=== PATIENT | male | born 1995 | race African-American/Black ===

== ENCOUNTER 2018-08-18 00:32 | Emergency (ER) | payer SELFPAY ==
[~2018-08-18] VITALS: Ht 180.3 cm; Wt 59.0 kg
[2018-08-18] MEDS ORDERED: IV NORMAL SALINE 1000ML BAG 1,000 ML IV SCH (02:00)
[2018-08-18] MEDS ORDERED: IOHEXOL 300 MG/ML 100ML VIAL. IV ONE (02:00)
[2018-08-18] MEDS ORDERED: CONTRAST GIVEN. MC PRN (02:00)
[2018-08-18] MEDS ORDERED: HYOSCYAMINE 0.125 MG TAB.RAPDIS PO ONE (02:00)
[2018-08-18] MEDS ORDERED: PROCHLORPERAZINE 10 MG/2 ML VIAL. IV ONE (02:00)
[2018-08-18] MEDS ORDERED: KETOROLAC 30 MG/ML VIAL. IV ONE (02:00)
[2018-08-18 02:16] LABS: BASO % 1 % (0-3); EOS % 0 % (0-3); HEMATOCRIT 43.3 % (39.0-53.0); HEMOGLOBIN 14.7 g/dL (13.0-17.5); LYMPH # 1.2 x10^3/uL (1.0-4.8); LYMPH % 21 % (24-48); MEAN CORPUSCULAR HEMOGLOBIN 33 pg (25-35); MEAN CORPUSCULAR HGB CONC 34 g/dL (31-37); MEAN CORPUSCULAR VOLUME 97 fL (79-100); MONO # 0.6 x10^3/uL (0.0-1.1); MONO % 10 % (0-9); NEUT # 3.9 x10^3uL (1.8-7.7); NEUT % 69 % (31-73); PLATELET COUNT 190 x10^3/uL (140-400); RED BLOOD COUNT 4.45 x10^6/uL (4.30-5.70); RED CELL DISTRIBUTION WIDTH 13.5 % (11.5-14.5); WHITE BLOOD COUNT 5.7 x10^3/uL (4.0-11.0)
--- NOTE | 2018-08-18 02:18 | PHYS DOC ---
Past Medical History Past Medical History: No Pertinent History Past Surgical History: No Surgical History Alcohol Use: Occasionally Drug Use: Marijuana Adult General Chief Complaint Chief Complaint: ABDOMINAL PAIN HPI HPI Patient is a 23 year old male who presents with right-sided abdominal pain. This started approximately 2000 on 08/17/2018. Patient had last eaten chicken sandwich and cambodian fries at 1800. Patient also smoked some marijuana earlier in the day. Patient had one episode of nausea and vomiting. Patient reports moving around makes the discomfort worse, holding still seems to make it better patient is taken no medication at home. Patient denies any groin or testicular pain, no dysuria. Patient denies having previous surgical history..[] Review of Systems Review of Systems Constitutional: Denies fever or chills [] Eyes: Denies change in visual acuity, redness, or eye pain [] HENT: Denies nasal congestion or sore throat [] Respiratory: Denies cough or shortness of breath [] Cardiovascular: No chest pain or palpitations[] GI: See history of present illness[] : Denies dysuria or hematuria [] Musculoskeletal: Denies back pain or joint pain [] Integument: Denies rash or skin lesions [] Neurologic: Denies headache, focal weakness or sensory changes [] Endocrine: Denies polyuria or polydipsia [] All other systems were reviewed and found to be within normal limits, except as documented in this note. Current Medications Current Medications Current Medications Medications (Trade) Dose Ordered Sig/Js Start Time Stop Time Status Last Admin Dose Admin Hyoscyamine (Anaspaz) 0.125 mg ONCE ONCE 08/18/18 02:00 08/18/18 02:01 DC Info (CONTRAST GIVEN -- Rx MONITORING) 1 each PRN DAILY PRN 08/18/18 02:00 08/20/18 01:59 Iohexol (Omnipaque 300 Mg/ml) 75 ml 1X ONCE 08/18/18 02:00 08/18/18 02:01 DC 08/18/18 02:00 75 ML Ketorolac Tromethamine (Toradol 30mg Vial) 30 mg 1X ONCE 08/18/18 02:00 08/18/18 02:01 DC Prochlorperazine Edisylate (Compazine) 5 mg 1X ONCE 08/18/18 02:00 08/18/18 02:01 DC Sodium Chloride 1,000 ml @ 1,000 mls/hr Q1H 08/18/18 02:00 08/18/18 02:59 DC 08/18/18 02:08 1,000 MLS/HR Allergies Allergies Allergies Coded Allergies Type Severity Reaction Last Updated Verified No Known Drug Allergies 08/18/18 No Physical Exam Physical Exam Constitutional: Well developed, well nourished, mild discomfort, non-toxic appearance. [] HENT: Normocephalic, atraumatic, bilateral external ears normal, oropharynx moist, no oral exudates, nose normal. [] Eyes: PERRLA, EOMI, conjunctiva normal, no discharge. [] Neck: Normal range of motion, no tenderness, supple, no stridor. [] Cardiovascular:Heart rate regular rhythm, no murmur [] Lungs & Thorax: Bilateral breath sounds clear to auscultation [] Abdomen: Bowel sounds normal, soft, +right-sided tenderness. No specific McBurney's point tenderness no Rovsing's sign, no Chi's sign, no masses, no pulsatile masses. [] Skin: Warm, dry, no erythema, no rash. [] Back: No tenderness, no CVA tenderness. [] Extremities: No tenderness, no cyanosis, no clubbing, ROM intact, no edema. [] Neurologic: Alert and oriented X 3, normal motor function, normal sensory function, no focal deficits noted. [] Psychologic: Affect normal, judgement normal, mood normal. [] Current Patient Data Vital Signs Vital Signs Date Time Temp Pulse Resp B/P (MAP) Pulse Ox O2 Delivery O2 Flow Rate FiO2 08/18/18 01:00 98.4 60 18 157/100 (119) 98 Room Air 98.4 Lab Values Laboratory Tests Test 08/18/18 02:07 White Blood Count 5.7 x10^3/uL (4.0-11.0) Red Blood Count 4.45 x10^6/uL (4.30-5.70) Hemoglobin 14.7 g/dL (13.0-17.5) Hematocrit 43.3 % (39.0-53.0) Mean Corpuscular Volume 97 fL (79-100) Mean Corpuscular Hemoglobin 33 pg (25-35) Mean Corpuscular Hemoglobin Concent 34 g/dL (31-37) Red Cell Distribution Width 13.5 % (11.5-14.5) Platelet Count 190 x10^3/uL (140-400) Neutrophils (%) (Auto) 69 % (31-73) Lymphocytes (%) (Auto) 21 % (24-48) L Monocytes (%) (Auto) 10 % (0-9) H Eosinophils (%) (Auto) 0 % (0-3) Basophils (%) (Auto) 1 % (0-3) Neutrophils # (Auto) 3.9 x10^3uL (1.8-7.7) Lymphocytes # (Auto) 1.2 x10^3/uL (1.0-4.8) Monocytes # (Auto) 0.6 x10^3/uL (0.0-1.1) Eosinophils # (Auto) 0.0 x10^3/uL (0.0-0.7) Basophils # (Auto) 0.0 x10^3/uL (0.0-0.2) Sodium Level 143 mmol/L (136-145) Potassium Level 4.3 mmol/L (3.5-5.1) Chloride Level 104 mmol/L (98-107) Carbon Dioxide Level 30 mmol/L (21-32) Anion Gap 9 (6-14) Blood Urea Nitrogen 11 mg/dL (8-26) Creatinine 1.0 mg/dL (0.7-1.3) Estimated GFR (Cockcroft-Gault) 113.1 BUN/Creatinine Ratio 11 (6-20) Glucose Level 99 mg/dL (70-99) Calcium Level 9.3 mg/dL (8.5-10.1) Total Bilirubin 0.8 mg/dL (0.2-1.0) Aspartate Amino Transferase (AST) 16 U/L (15-37) Alanine Aminotransferase (ALT) 17 U/L (16-63) Alkaline Phosphatase 72 U/L (46-116) Total Protein 7.6 g/dL (6.4-8.2) Albumin 4.3 g/dL (3.4-5.0) Albumin/Globulin Ratio 1.3 (1.0-1.7) Lipase 118 U/L (73-393) Laboratory Tests 08/18/18 02:07 Laboratory Tests 08/18/18 02:07 EKG EKG [] Radiology/Procedures Radiology/Procedures CT scan of the abdomen and pelvis: IMPRESSION: 1. There is a 3 mm calculus in the proximal right ureter with resulting mild to moderate right hydroureteronephrosis. There is mild delayed enhancement of the right kidney. 2. 6 mm hypoattenuating lesion in the right hepatic lobe is suggestive of benign etiology such as a simple cyst or hemangioma.[] Course & Med Decision Making Course & Med Decision Making Pertinent Labs and Imaging studies reviewed. (See chart for details) ED course: Patient arrived, was placed in bed, in tolerated exam well. Patient had spontaneous resolution of his pain before pain medicine could be administered. He was transported to and from [place] with any complications. After the return of the imaging findings IV anti-inflammatories were administered prophylactically. Patient family were informed of the lab and CT findings. They voiced understanding. All questions were answered. Patient was discharged in improved condition. Medical decision making: There is no evidence of perforation or obstruction. No evidence of need for acute surgical intervention. Given the small size of the stone this should pass spontaneously. Patient will be discharged with pain medication as well as antiemetics.[] Dragon Disclaimer Dragon Disclaimer This electronic medical record was generated, in whole or in part, using a voice recognition dictation system. Departure Departure Impression: Primary Impression: Ureterolithiasis Disposition: 01 HOME, SELF-CARE Condition: GOOD Referrals: NO PCP (PCP) Patient Instructions: Diet for Kidney Stones, Kidney Stones Additional Instructions: Drink plenty of fluids. Follow-up with your regular doctor. Return to the ER if worsening pain, unable to tolerate oral intake, or any other concerns. Scripts Hydrocodone/Apap 5-325 (NORCO 5-325 TABLET) 1 Each Tablet 1-2 EACH PO PRN Q6HRS PRN for PAIN, #15 as needed for pain Prov: FANY COURTNEY DO 08/18/18 Metoclopramide Hcl (REGLAN) 10 Mg Tablet 10 MG PO QIDACHS, #30 TAB 0 Refills Prov: FANY COURTNEY DO 08/18/18 Meloxicam (MELOXICAM) 7.5 Mg Tablet 7.5 MG PO DAILY, #20 TAB Prov: FANY COURTNEY DO 08/18/18 FANY COURTNEY DO Aug 18, 2018 02:18
[2018-08-18 02:24] LABS: CALCIUM 9.3 mg/dL (8.5-10.1); GFR 113.1; POTASSIUM 4.3 mmol/L (3.5-5.1)
[2018-08-18 02:30] LABS: ALBUMIN 4.3 g/dL (3.4-5.0); ALBUMIN/GLOBULIN RATIO 1.3 (1.0-1.7); TOTAL BILIRUBIN 0.8 mg/dL (0.2-1.0); TOTAL PROTEIN 7.6 g/dL (6.4-8.2)
--- NOTE | 2018-08-18 02:52 | RAD ---
PQRS Compliance Statement: One or more of the following individualized dose reduction techniques were utilized for this examination: 1. Automated exposure control 2. Adjustment of the mA and/or kV according to patient size 3. Use of iterative reconstruction technique CT abdomen/pelvis with contrast 08/18/2018 2:27 AM INDICATION: Right-sided abdominal pain with vomiting. COMPARISON: None available TECHNIQUE: Multiple axial CT images of the abdomen and pelvis were obtained after the intravenous administration of 75 mL Omnipaque 300. Coronal and sagittal reformats are provided. FINDINGS: Lung bases are clear. Heart size is within normal limits. There is a 6 mm hypoattenuating lesion in the right hepatic lobe suggestive of benign etiology such as a simple cyst or hemangioma. Spleen is nonenlarged. Pancreas and gallbladder are normal. The abdominal aorta is normal in course and caliber. There are no pathologically enlarged lymph nodes in the abdomen and pelvis. There is no abdominal free fluid. There is no free intraperitoneal air. Small and large bowel are normal in caliber. There is no evidence for bowel obstruction. There are no pericolonic inflammatory changes. A normal, nondilated appendix is visualized without adjacent inflammatory changes. There is mild to moderate right hydronephrosis with mild urothelial wall thickening. There is a 3 mm calculus in the proximal right ureter. Mild delayed enhancement of the right kidney. Left kidney is normal in appearance without calculus. Urinary bladder is within normal limits given degree of distention. No suspicious pelvic mass. No suspicious osseous amount. IMPRESSION: 1. There is a 3 mm calculus in the proximal right ureter with resulting mild to moderate right hydroureteronephrosis. There is mild delayed enhancement of the right kidney. 2. 6 mm hypoattenuating lesion in the right hepatic lobe is suggestive of benign etiology such as a simple cyst or hemangioma. Electronically signed by: Sharla Tony MD (08/18/2018 2:48 AM) [id number]
[2018-08-18 02:57] LABS: BILIRUBIN,URINE NEGATIVE (NEG); CLARITY,URINE CLEAR; COLOR,URINE YELLOW; NITRITE,URINE NEGATIVE (NEG); PROTEIN,URINE NEGATIVE (NEG-TRACE); UROBILINOGEN,URINE 0.2 mg/dL (0.2 mg/dL)
[2018-08-18 03:09] LABS: BACTERIA,URINE 0 /HPF (0-FEW); RBC,URINE TNTC /HPF (0-2); WBC,URINE RARE /HPF (0-4)
[2018-08-18] MEDS ORDERED: METO10TA81 PO (03:11)
[2018-08-18] MEDS ORDERED: MELO7.5T29 PO (03:11)
[2018-08-18] MEDS ORDERED: HYDR-3164 PO (03:12)
[2018-08-18 03:20] VITALS: BP 150/96
== END 2018-08-18 03:22 | disposition home or self-care (01) ==
LOC: ER 00:32
DX: N13.2 Hydronephrosis with renal and ureteral calculous obstruction (principal); R11.2 Nausea with vomiting, unspecified; F12.20 Cannabis dependence, uncomplicated
CPT/HCPCS: 36415; 74177; 80053; 81001; 83690; 85025; 96361; 96374; 99284; J1885; J7030; Q9967

== ENCOUNTER 2021-01-09 15:33 | Emergency (ER) | payer SELFPAY ==
[~2021-01-09] VITALS: Ht 180.3 cm; Wt 67.0 kg
[~2021-01-09 15:33] MED LIST: HYDR-3164 PO; MELO7.5T29 PO; METO10TA81 PO
[2021-01-09] MEDS: IV NORMAL SALINE 1000ML BAG 1,000 ML IV ONE (16:59)
[2021-01-09] MEDS: ONDANSETRON PF 4 MG/2 ML VIAL. IVP ONE (16:59)
[2021-01-09] MEDS: MORPHINE SULFATE 10 MG/ML VIAL. IV ONE (17:00)
[2021-01-09] MEDS: KETOROLAC 30 MG/ML VIAL. IVP ONE (17:00)
[2021-01-09 17:05] LABS: BILIRUBIN,URINE NEGATIVE (NEG); CLARITY,URINE CLOUDY; COLOR,URINE RED; NITRITE,URINE NEGATIVE (NEG); PROTEIN,URINE 100 mg/dL (NEG-TRACE); UROBILINOGEN,URINE 0.2 mg/dL (0.2 mg/dL)
[2021-01-09 17:18] LABS: RBC,URINE TNTC /HPF (0-2)
[2021-01-09 17:25] LABS: BACTERIA,URINE FEW /HPF (0-FEW)
[2021-01-09 17:28] LABS: BASO % 1 % (0-3); EOS % 0 % (0-3); HEMATOCRIT 43.7 % (39.0-53.0); HEMOGLOBIN 14.5 g/dL (13.0-17.5); LYMPH # 1.2 x10^3/uL (1.0-4.8); LYMPH % 15 % (24-48); MEAN CORPUSCULAR HEMOGLOBIN 32 pg (25-35); MEAN CORPUSCULAR HGB CONC 33 g/dL (31-37); MEAN CORPUSCULAR VOLUME 97 fL (79-100); MONO # 0.6 x10^3/uL (0.0-1.1); MONO % 7 % (0-9); NEUT # 6.2 x10^3/uL (1.8-7.7); NEUT % 77 % (31-73); PLATELET COUNT 238 x10^3/uL (140-400); RED BLOOD COUNT 4.52 x10^6/uL (4.30-5.70); RED CELL DISTRIBUTION WIDTH 13.4 % (11.5-14.5); WHITE BLOOD COUNT 8.1 x10^3/uL (4.0-11.0)
--- NOTE | 2021-01-09 17:36 | RAD ---
Exam: CT of abdomen and pelvis without contrast INDICATION: Left-sided flank pain TECHNIQUE: Sequential axial images through the abdomen and pelvis obtained without IV contrast. Sagit yolis and coronal reformatted images were reconstructed from the axial data and reviewed. Comparisons: 07/29/2018 FINDINGS: Heart size is normal. No pericardial effusion. Visualized lung bases are clear. No pleural effusion. Evaluation of solid organs is limited secondary to noncontrast technique. Liver, spleen, pancreas, gallbladder and adrenals are unremarkable. There is moderate right-sided hydronephrosis. There is a 3 mm calculus at the distal left ureter. Enzo ateral nonobstructing renal calculi noted. Bladder is decompressed not well evaluated. Prostate is not enlarged. Large and small bowel are unremarkable. Appendix is normal. No free intra-abdominal air or fluid. No obstruction. Abdominal aorta has a normal course and caliber. No enlarged intra-abdominal lymph nodes are identified. No suspicious lesions or acute fractures. IMPRESSION: Moderate left-sided hydronephrosis with a 3 mm calculus at the distal left ureter. Bilateral nonobstr ucting renal calculi noted. Exposure: One or more of the following in the visualized dose reduction techniques were utilized for this examination: 1. Automated exposure control 2. Adjustment of the MA and/or KV according to patient size 3. Use of iterative of reconstructive technique Electronically signed by: Gerry Amaya MD (01/09/2021 5:34 PM) [facility]
--- NOTE | 2021-01-09 17:56 | ED.ADGEN ---
Past Medical History Past Medical History: No Pertinent History Past Surgical History: No Surgical History Smoking Status: Current Every Day Smoker Alcohol Use: Occasionally Drug Use: Marijuana General Adult EDM: Chief Complaint: FLANK PAIN HPI: HPI: Patient is 25-year-old male who presents to the emergency room complaining of left-sided flank pain. Patient states that this started earlier today. It does been constant since that time. He states that he is unable to get comfortable. He states that it feels like a swelling pain. He does not know if he has any urinary symptoms because he has not looked he states. He denies any kind of fever. He has not had any nausea or vomiting. He states he had something similar to this a couple years ago that was due to kidney pain. He states that it was due to him not drinking enough water but does not remember what happened. Review of Systems: Review of Systems: Complete ROS is negative unless otherwise documented in HPI Current Medications: Current Medications Medications (Trade) Dose Ordered Sig/Js Start Time Stop Time Status Last Admin Dose Admin Ketorolac Tromethamine (Toradol 30mg Vial) 30 mg 1X ONCE 01/09/21 16:45 01/09/21 16:46 DC 01/09/21 17:00 30 MG Morphine Sulfate (Morphine Sulfate) 5 mg 1X ONCE 01/09/21 16:45 01/09/21 16:46 DC 01/09/21 17:00 5 MG Ondansetron HCl (Zofran) 4 mg 1X ONCE 01/09/21 17:00 01/09/21 17:01 DC 01/09/21 16:59 4 MG Sodium Chloride 1,000 ml @ 1,000 mls/hr 1X ONCE 01/09/21 16:45 01/09/21 17:44 DC 01/09/21 16:59 1,000 MLS/HR Allergies: Allergies: Allergies Coded Allergies Type Severity Reaction Last Updated Verified No Known Drug Allergies 08/18/18 No Physical Exam: PE: General: Awake, alert, NAD. Well Nourished, well hydrated. Cooperative HEENT: Atraumatic, EOMI, PERRL, airway patent, moist oral mucosa Neck: Supple, trachea midline Respiratory: CTA bilaterally, normal effort, no wheezing/crackles CV: RRR, no murmur, cap refill <2 GI: Soft, nondistended, nontender, no masses MSK: No obvious deformities Skin: Warm, dry, intact Neuro: A&O x3, speech NL, sensory and motor grossly intact, no focal deficits Psych: Normal affect, normal mood, not suicidal or homicidal Current Patient Data: Labs: Laboratory Tests Test 01/09/21 16:00 01/09/21 16:48 White Blood Count 8.1 x10^3/uL (4.0-11.0) Red Blood Count 4.52 x10^6/uL (4.30-5.70) Hemoglobin 14.5 g/dL (13.0-17.5) Hematocrit 43.7 % (39.0-53.0) Mean Corpuscular Volume 97 fL (79-100) Mean Corpuscular Hemoglobin 32 pg (25-35) Mean Corpuscular Hemoglobin Concent 33 g/dL (31-37) Red Cell Distribution Width 13.4 % (11.5-14.5) Platelet Count 238 x10^3/uL (140-400) Neutrophils (%) (Auto) 77 % (31-73) H Lymphocytes (%) (Auto) 15 % (24-48) L Monocytes (%) (Auto) 7 % (0-9) Eosinophils (%) (Auto) 0 % (0-3) Basophils (%) (Auto) 1 % (0-3) Neutrophils # (Auto) 6.2 x10^3/uL (1.8-7.7) Lymphocytes # (Auto) 1.2 x10^3/uL (1.0-4.8) Monocytes # (Auto) 0.6 x10^3/uL (0.0-1.1) Eosinophils # (Auto) 0.0 x10^3/uL (0.0-0.7) Basophils # (Auto) 0.0 x10^3/uL (0.0-0.2) Urine Collection Type Void Urine Color Red Urine Clarity Cloudy Urine pH 7.0 (<5.0-8.0) Urine Specific [place] 1.020 (1.000-1.030) Urine Protein 100 mg/dL (NEG-TRACE) Urine Glucose (UA) Negative mg/dL (NEG) Urine Ketones (Stick) Trace mg/dL (NEG) Urine Blood Large (NEG) Urine Nitrite Negative (NEG) Urine Bilirubin Negative (NEG) Urine Urobilinogen Dipstick 0.2 mg/dL (0.2 mg/dL) Urine Leukocyte Esterase Small (NEG) Urine RBC Tntc /HPF (0-2) Urine WBC 1-4 /HPF (0-4) Urine Squamous Epithelial Cells Occ /LPF Urine Bacteria Few /HPF (0-FEW) Urine Mucus Mod /LPF Laboratory Tests 01/09/21 16:00 Vital Signs: Vital Signs Date Time Temp Pulse Resp B/P (MAP) Pulse Ox O2 Delivery O2 Flow Rate FiO2 01/09/21 17:00 17 96 Room Air 01/09/21 15:56 98.4 56 132/64 (86) 98.4 EKG: EKG: [] Heart Score: C/O Chest Pain: N/A Risk Factors: Risk Factors: DM, Current or recent (<one month) smoker, HTN, HLP, family history of CAD, obesity. Risk Scores: Score 0 - 3: 2.5% MACE over next 6 weeks - Discharge Home Score 4 - 6: 20.3% MACE over next 6 weeks - Admit for Clinical Observation Score 7 - 10: 72.7% MACE over next 6 weeks - Early Invasive Strategies Radiology/Procedures: Radiology/Procedures: [] Course & Med Decision Making: Course & Med Decision Making Pertinent Labs and Imaging studies reviewed. (See chart for details) Patient is a 25 year old who presents to the Emergency Room complaining of left flank pain. On exam, patient was initially sleeping but upon being awoken appears uncomfortable. Patient's presentation is concerning for a possible kidney stone. Patient was given morphine and Toradol for pain relief. CBC, BMP, UA were ordered to evaluate for kidney function and infection. CT abdomen and pelvis without contrast was ordered to evaluate for a kidney stone. CT shows small kidney stone. Patient discussed with Dr Banda who will assume care. At check out, BMP was pending. Dragon Disclaimer: George Disclaimer: This electronic medical record was generated, in whole or in part, using a voice recognition dictation system. Departure Departure Impression: Primary Impression: Kidney stone Disposition: HOME / SELF CARE / HOMELESS Condition: STABLE Referrals: NO PCP (PCP) Patient Instructions: Kidney Stones Scripts Tamsulosin Hcl (FLOMAX) 0.4 Mg Cap.er.24h 1 CAP PO DAILY, #14 CAP 0 Refills Prov: FILI DOBSON MD 01/09/21 Oxycodone/Apap 5-325 (PERCOCET 5-325 MG TABLET ) 1 Each Tablet 1 TAB PO PRN Q6HRS PRN for PAIN, #12 TAB 0 Refills Prov: FILI DOBSON MD 01/09/21 FILI DOBSON MD Jan 09, 2021 17:56
[2021-01-09] MEDS ORDERED: TAMS0.4C97 PO (17:58)
[2021-01-09] MEDS ORDERED: OXYC1TAB15 PO (17:58)
[2021-01-09 19:17] LABS: CALCIUM 8.9 mg/dL (8.5-10.1); CREATININE 1.1 mg/dL (0.7-1.3); GFR 99.5; POTASSIUM 3.2 mmol/L (3.5-5.1)
[2021-01-09 19:21] VITALS: BP 148/65
[2021-01-09 19:22] LABS: ALBUMIN 4.7 g/dL (3.4-5.0); ALBUMIN/GLOBULIN RATIO 1.5 (1.0-1.7); TOTAL BILIRUBIN 0.6 mg/dL (0.2-1.0); TOTAL PROTEIN 7.8 g/dL (6.4-8.2)
== END 2021-01-09 19:29 | disposition home or self-care (01) ==
LOC: ER 15:33
DX: N20.0 Calculus of kidney (principal); R10.9 Unspecified abdominal pain; F17.200 Nicotine dependence, unspecified, uncomplicated; F12.90 Cannabis use, unspecified, uncomplicated
CPT/HCPCS: 36415; 74176; 80053; 81001; 85025; 87491; 87591; 96361; 96374; 96375; 99285; J1885; J2270; J2405; J7030

== ENCOUNTER 2021-03-19 14:33 | Emergency (ER) | payer BC ==
[~2021-03-19] VITALS: Ht 180.3 cm; Wt 61.3 kg
[~2021-03-19 14:33] MED LIST changes: +OXYC1TAB15 PO; +TAMS0.4C97 PO
--- NOTE | 2021-03-19 14:44 | PHYS DOC ---
Past Medical History Past Medical History: No Pertinent History Past Surgical History: No Surgical History Smoking Status: Current Every Day Smoker Alcohol Use: Occasionally Drug Use: Marijuana General Adult EDM: Chief Complaint: FLANK PAIN HPI: HPI: Patient is a 25 year old who presented to ER for evaluation of right flank pain with blood in his urine started this morning. Patient has a history of kidney stones in the past. Patient denies any cough or fever, no chest pain, no trouble breathing. Patient described the pain is very sharp and stabbing in nature. Last time he had a kidney stone attack was 3 months ago. Review of Systems: Review of Systems: Constitutional: Denies fever or chills. [] Eyes: Denies change in visual acuity. [] HENT: Denies nasal congestion or sore throat. [] Respiratory: Denies cough or shortness of breath. [] Cardiovascular: Denies chest pain or edema. [] GI: Positive for right flank pain,NO nausea, vomiting, bloody stools or diarrhea. [] : Denies dysuria, positive for blood in his urine. Musculoskeletal: Denies back pain or joint pain. [] Integument: Denies rash. [] Neurologic: Denies headache, focal weakness or sensory changes. [] Endocrine: Denies polyuria or polydipsia. [] Lymphatic: Denies swollen glands. [] Psychiatric: Denies depression or anxiety. [] Heart Score: C/O Chest Pain: N/A Risk Factors: Risk Factors: DM, Current or recent (<one month) smoker, HTN, HLP, family history of CAD, obesity. Risk Scores: Score 0 - 3: 2.5% MACE over next 6 weeks - Discharge Home Score 4 - 6: 20.3% MACE over next 6 weeks - Admit for Clinical Observation Score 7 - 10: 72.7% MACE over next 6 weeks - Early Invasive Strategies Allergies: Allergies: Allergies Coded Allergies Type Severity Reaction Last Updated Verified No Known Drug Allergies 08/18/18 No Physical Exam: PE: Constitutional: Well developed, well nourished, no acute distress, non-toxic appearance. [] HENT: Normocephalic, atraumatic, bilateral external ears normal, oropharynx moist, no oral exudates, nose normal. [] Eyes: PERRLA, EOMI, conjunctiva normal, no discharge. [] Neck: Normal range of motion, no tenderness, supple, no stridor. [] Cardiovascular:Heart rate regular rhythm, no murmur [] Lungs & Thorax: Bilateral breath sounds clear to auscultation [] Abdomen: Bowel sounds normal, soft, right side tenderness to palpation, no masses, no pulsatile masses. [] Skin: Warm, dry, no erythema, no rash. [] Back: No tenderness, Right CVA tenderness. [] Extremities: No tenderness, no cyanosis, no clubbing, ROM intact, no edema. [] Neurologic: Alert and oriented X 3, normal motor function, normal sensory functi on, no focal deficits noted. [] Psychologic: Affect normal, judgement normal, mood normal. [] Current Patient Data: Labs: Laboratory Tests Test 03/19/21 14:50 03/19/21 15:00 03/19/21 16:20 White Blood Count 6.1 x10^3/uL Red Blood Count 4.50 x10^6/uL Hemoglobin 14.2 g/dL Hematocrit 43.0 % Mean Corpuscular Volume 96 fL Mean Corpuscular Hemoglobin 32 pg Mean Corpuscular Hemoglobin Concent 33 g/dL Red Cell Distribution Width 13.5 % Platelet Count 269 x10^3/uL Neutrophils (%) (Auto) 41 % Lymphocytes (%) (Auto) 45 % Monocytes (%) (Auto) 13 % Eosinophils (%) (Auto) 0 % Basophils (%) (Auto) 1 % Neutrophils # (Auto) 2.5 x10^3/uL Lymphocytes # (Auto) 2.7 x10^3/uL Monocytes # (Auto) 0.8 x10^3/uL Eosinophils # (Auto) 0.0 x10^3/uL Basophils # (Auto) 0.0 x10^3/uL Sodium Level 142 mmol/L Potassium Level 3.3 mmol/L Chloride Level 103 mmol/L Carbon Dioxide Level 25 mmol/L Anion Gap 14 Blood Urea Nitrogen 12 mg/dL Creatinine 1.2 mg/dL Estimated GFR (Cockcroft-Gault) 90.0 BUN/Creatinine Ratio 10 Glucose Level 106 mg/dL Calcium Level 9.3 mg/dL Total Bilirubin 1.0 mg/dL Aspartate Amino Transf (AST/SGOT) 24 U/L Alanine Aminotransferase (ALT/SGPT) 19 U/L Alkaline Phosphatase 81 U/L Total Protein 7.9 g/dL Albumin 4.8 g/dL Albumin/Globulin Ratio 1.5 Lipase 51 U/L Urine Collection Type Unknown Urine Color Red Urine Clarity Turbid Urine pH 7.5 Urine Specific [place] 1.020 Urine Protein 30 mg/dL Urine Glucose (UA) Negative mg/dL Urine Ketones (Stick) Trace mg/dL Urine Blood Large Urine Nitrite Negative Urine Bilirubin Negative Urine Urobilinogen Dipstick 1.0 mg/dL Urine Leukocyte Esterase Small Urine RBC Tntc /HPF Urine WBC 1-4 /HPF Urine Squamous Epithelial Cells Occ /LPF Urine Amorphous Sediment Present /HPF Urine Bacteria Moderate /HPF Urine Mucus Mod /LPF Current Medications Medications (Trade) Dose Ordered Sig/Js Route PRN Reason Start Time Stop Time Status Last Admin Dose Admin Ketorolac Tromethamine (Toradol 30mg Vial) 30 mg 1X ONCE IVP 03/19/21 15:00 03/19/21 15:01 DC 03/19/21 15:13 Ondansetron HCl (Zofran) 4 mg 1X ONCE IVP 03/19/21 15:00 03/19/21 15:01 DC 03/19/21 15:11 Sodium Chloride 1,000 ml @ 1,000 mls/hr 1X ONCE IV 03/19/21 15:00 03/19/21 15:59 DC 03/19/21 15:12 Tamsulosin HCl (Flomax) 0.4 mg 1X ONCE PO 03/19/21 15:45 03/19/21 15:46 DC 03/19/21 15:51 Morphine Sulfate (Morphine Sulfate) 4 mg 1X ONCE IV 03/19/21 15:45 03/19/21 15:46 DC 03/19/21 15:51 Ceftriaxone Sodium (Rocephin) 1 gm 1X ONCE IVP 03/19/21 17:00 03/19/21 17:01 DC 03/19/21 17:17 Potassium Chloride (Klor-Con) 40 meq 1X ONCE PO 03/19/21 17:00 03/19/21 17:01 Cancel Potassium Chloride (Klor-Con) 40 meq 1X ONCE PO 03/19/21 17:15 03/19/21 17:16 DC 03/19/21 17:17 EKG: EKG: [] Radiology/Procedures: Radiology/Procedures: [][facility] [address] [place] [address] IMAGING REPORT Signed PATIENT: JAYDEN MATHEW MACCOUNT: [id number] : 1995 LOCATION: ER AGE: 25 SEX: M EXAM STATUS: REG ER ORD. PHYSICIAN: VANITA CABRAL DO REASON: RIGHT FLANK PAIN PROCEDURE: CT ABDOMEN PELVIS WO CONTRAST EXAMINATION: CT abdomen and pelvis without IV contrast. INDICATION:25 years, Male, right flank pain. TECHNIQUE: Axial CT images of the abdomen and pelvis were obtained. Coronal and sagittal reformatted performed. COMPARISON: 01/09/2021. Exposure: One or more of the following individualized dose reduction techniques were utilized for this examination: 1. Automated exposure control 2. Adjustment of the mA and/or kV according to patient size 3. Use of iterative reconstruction technique. FINDINGS: LOWER CHEST: Unremarkable ABDOMEN/PELVIS: Within limitation of noncontrast exam and lack of intra-abdominal fat, New right hydroureteronephrosis secondary to obstructing 3 mm calculus in the mid ureter. Redemonstrated punctate bilateral nonobstructing nephrolithiasis, more of the right, measuring up to 3 mm. No left hydronephrosis. Liver, spleen, pancreas, gallbladder, biliary ducts, adrenals and aorta are unremarkable. No pneumoperitoneum or ascites. No bowel obstruction. Appendix is normal. No abdominopelvic lymphadenopathy. Underdistended urinary bladder which limits evaluation. Unremarkable prostate. MUSCULOSKELETAL: No acute osseous process. IMPRESSION: 1. New, right hydroureteronephrosis secondary to obstructing 3 mm calculus in the mid ureter. 2. Redemonstrated punctate bilateral nonobstructing nephrolithiasis. Electronically signed by: Samantha Chase MD (03/19/2021 3:33 PM) [facility] DICTATED and SIGNED BY: SAMANTHA CHASE MD DATE: 03/19/21 [id number] 0 Course & Med Decision Making: Course & Med Decision Making Pertinent Labs and Imaging studies reviewed. (See chart for details) Patient is a 23-year-old male who present to ER due to right flank pain, CT scan showed no right-sided hydronephrosis with a 3 mm stone on right proximal ureter, kidney function was normal. Patient was given pain medication in the ER, he feels much better. Patient will discharge home, he will need to follow- up with urology for outpatient evaluation and treatment. Patient is amenable to plan of care. George Disclaimer: George Disclaimer: This electronic medical record was generated, in whole or in part, using a voice recognition dictation system. Departure Departure Impression: Primary Impression: Kidney stone on right side Disposition: HOME / SELF CARE / HOMELESS Condition: STABLE Referrals: NO PCP (PCP) PLEASE CALL [facility] UROLOGY DEPARTMENT FOR FOLLOW UP THIS WEEK. The phone number is [phone] Patient Instructions: Kidney Stones Additional Instructions: Thank you for visiting our Emergency Department. We appreciate you trusting us with your care. If any additional problems come up don't hesitate to return to visit us. Please follow up with your primary care provider so they can plan additional care if needed and know about the problem that you had. If symptoms worsen come back to the Emergency Department. Any concerning symptoms that start such as chest pain, shortness of air, weakness or numbness on one side of the body, running high fevers or any other concerning symptoms return to the ER. Scripts Ciprofloxacin Hcl (CIPRO) 500 Mg Tablet 1 TAB PO BID for 10 Days, #20 TAB 0 Refills Prov: VANITA CABRAL DO 03/19/21 Tamsulosin Hcl (FLOMAX) 0.4 Mg Cap.er.24h 1 CAP PO DAILY for 14 Days, #14 CAP 11 Refills Prov: VANITA CABRAL DO 03/19/21 Ibuprofen (IBUPROFEN) 600 Mg Tablet 600 MG PO PRN Q6HRS PRN for PAIN, #30 TAB Prov: VANITA CABRAL DO 03/19/21 Hydrocodone/Acetaminophen (Hydrocodone-Acetamin 5-325 mg) 1 Each Tablet 1 EACH PO Q6HRS PRN for PAIN, #15 TAB Prov: VANITA CABRAL DO 03/19/21 VANITA CABRAL DO Mar 19, 2021 14:44
[2021-03-19] MEDS ORDERED: ONDANSETRON PF 4 MG/2 ML VIAL. IVP ONE (15:00)
[2021-03-19] MEDS ORDERED: KETOROLAC 30 MG/ML VIAL. IVP ONE (15:00)
[2021-03-19] MEDS ORDERED: IV NORMAL SALINE 1000ML BAG 1,000 ML IV ONE (15:00)
[2021-03-19 15:20] LABS: BASO % 1 % (0-3); EOS % 0 % (0-3); HEMOGLOBIN 14.2 g/dL (13.0-17.5); LYMPH # 2.7 x10^3/uL (1.0-4.8); LYMPH % 45 % (24-48); MEAN CORPUSCULAR HEMOGLOBIN 32 pg (25-35); MEAN CORPUSCULAR HGB CONC 33 g/dL (31-37); MEAN CORPUSCULAR VOLUME 96 fL (79-100); MONO # 0.8 x10^3/uL (0.0-1.1); MONO % 13 % (0-9); NEUT # 2.5 x10^3/uL (1.8-7.7); NEUT % 41 % (31-73); PLATELET COUNT 269 x10^3/uL (140-400); RED CELL DISTRIBUTION WIDTH 13.5 % (11.5-14.5); WHITE BLOOD COUNT 6.1 x10^3/uL (4.0-11.0)
[2021-03-19 15:32] LABS: CALCIUM 9.3 mg/dL (8.5-10.1); CREATININE 1.2 mg/dL (0.7-1.3); POTASSIUM 3.3 mmol/L (3.5-5.1)
--- NOTE | 2021-03-19 15:35 | RAD ---
EXAMINATION: CT abdomen and pelvis without IV contrast. INDICATION:25 years, Male, right flank pain. TECHNIQUE: Axial CT images of the abdomen and pelvis were obtained. Coronal and sagittal reformatted performed. COMPARISON: 01/09/2021. Exposure: One or more of the following individualized dose reduction techniques were utilized for thi s examination: 1. Automated exposure control 2. Adjustment of the mA and/or kV according to patient size 3. Use of iterative reconstruction technique. FINDINGS: LOWER CHEST: Unremarkable ABDOMEN/PELVIS: Within limitation of noncontrast exam and lack of intra-abdominal fat, New right hydroureteronephrosis secondary to obstructing 3 mm calculus in the mid ureter. Redemonstra katina punctate bilateral nonobstructing nephrolithiasis, more of the right, measuring up to 3 mm. No le ft hydronephrosis. Liver, spleen, pancreas, gallbladder, biliary ducts, adrenals and aorta are unremarkable. No pneumope ritoneum or ascites. No bowel obstruction. Appendix is normal. No abdominopelvic lymphadenopathy. Und erdistended urinary bladder which limits evaluation. Unremarkable prostate. MUSCULOSKELETAL: No acute osseous process. IMPRESSION: 1. New, right hydroureteronephrosis secondary to obstructing 3 mm calculus in the mid ureter. 2. Redemonstrated punctate bilateral nonobstructing nephrolithiasis. Electronically signed by: Aleksandar Chase MD (03/19/2021 3:33 PM) [facility]
[2021-03-19 15:41] LABS: ALBUMIN 4.8 g/dL (3.4-5.0); ALBUMIN/GLOBULIN RATIO 1.5 (1.0-1.7); TOTAL PROTEIN 7.9 g/dL (6.4-8.2)
[2021-03-19] MEDS ORDERED: MORPHINE SULFATE 4 MG/ML VIAL. IV ONE (15:45)
[2021-03-19] MEDS ORDERED: TAMSULOSIN 0.4 MG CAP.ER.24H. PO ONE (15:45)
[2021-03-19 16:35] LABS: BILIRUBIN,URINE NEGATIVE (NEG); CLARITY,URINE TURBID; COLOR,URINE RED; NITRITE,URINE NEGATIVE (NEG); PH,URINE 7.5 (<5.0-8.0); PROTEIN,URINE 30 mg/dL (NEG-TRACE)
[2021-03-19 16:42] LABS: BACTERIA,URINE MODERATE /HPF (0-FEW)
[2021-03-19 16:43] LABS: RBC,URINE TNTC /HPF (0-2)
[2021-03-19 16:45] LABS: AMORPHOUS SEDIMENT,UR PRESENT /HPF
[2021-03-19] MEDS ORDERED: cefTRIAXone IV Push 1 GM VIAL. IVP ONE (17:00)
[2021-03-19] MEDS ORDERED: POTASSIUM CHLORIDE 10 MEQ TABLET.ER. PO ONE (17:00)
[2021-03-19 17:09] VITALS: BP 137/87
[2021-03-19] MEDS ORDERED: POTASSIUM CHLORIDE 20 MEQ TABLET.ER. PO ONE (17:15)
[2021-03-19] MEDS ORDERED: HYDR-2759 PO (17:58)
[2021-03-19] MEDS ORDERED: IBUP-1007 PO (17:58)
[2021-03-19] MEDS ORDERED: CIPR500T94 PO (17:58)
[2021-03-19] MEDS ORDERED: TAMS0.4C97 PO (17:58)
== END 2021-03-19 18:18 | disposition home or self-care (01) ==
LOC: ER 14:33
DX: N13.2 Hydronephrosis with renal and ureteral calculous obstruction (principal); F17.200 Nicotine dependence, unspecified, uncomplicated
CPT/HCPCS: 36415; 74176; 80053; 81001; 83690; 85025; 87086; 96361; 96374; 96375; 99284; J0696; J1885; J2270; J2405; J7030